=== PATIENT | female | born 1935 | race Hispanic/Latino ===

== ENCOUNTER 2020-03-10 07:11 | Day surgery (SDC) | payer MEDICARE, OTHER ==
[2020-03-10] MEDS ORDERED: SODIUM CHLORIDE 0.9% 1000 ML 1,000 ML IV SCH (08:00)
[2020-03-10 08:10] LABS: Basophils # (Auto) 0.1 K/mm3 (0.0-0.1); Basophils % (Auto) 1.2 % (0.0-1.8); Eosinophils # (Auto) 0.1 K/mm3 (0.0-0.4); Eosinophils % (Auto) 0.7 % (0.0-4.3); Hematocrit 32.4 % (30.3-42.9); Hemoglobin 10.5 gm/dl (10.1-14.3); Lymphocytes # (Auto) 1.7 K/mm3 (1.2-5.4); Lymphocytes % (Auto) 23.4 % (13.4-35.0); Mean Corpuscular HGB Conc 32 % (30-34); Mean Corpuscular Volume 82 fl (79-97); Monocytes # (Auto) 0.6 K/mm3 (0.0-0.8); Platelet Count 321 K/mm3 (140-440); Red Blood Count 3.95 M/mm3 (3.65-5.03); Red Cell Distribution Width 16.5 % (13.2-15.2)
[2020-03-10 08:20] LABS: INR 0.98 (0.87-1.13)
[2020-03-10 08:26] LABS: Blood Urea Nitrogen 10 mg/dL (7-17); Calcium 9.5 mg/dL (8.4-10.2); Hemolysis Index 27
[2020-03-10 08:36] LABS: BUN/Creatinine Ratio 20
--- NOTE | 2020-03-10 08:40 | Anesthesia Day of Surgery ---
Anesthesia Day of Surgery - Day of Surgery Patient Examined: Yes Patient H&P Reviewed: Yes Patient is NPO: Yes
--- NOTE | 2020-03-10 08:42 | Anesthesia Consultation ---
Anesthesia Consult and Med Hx Date of service: 03/10/20 - Airway Anesthetic Teeth Evaluation: Good ROM Head & Neck: Adequate Mental/Hyoid Distance: Adequate Mallampati Class: Class II Intubation Access Assessment: Probably Good - Pre-Operative Health Status ASA Pre-Surgery Classification: ASA3 Proposed Anesthetic Plan: General (MAC; GA if needed), MAC - Pulmonary Hx Smoking: No Hx Respiratory Symptoms: No (Knee pain limits activities) SOB: Yes (ROSARIO) Hx Sleep Apnea: No - Cardiovascular System Hx Hypertension: Yes Hx Coronary Artery Disease: No (Recent ECHO/NST reviewed) Hx Cardia Arrhythmia: Yes (AFIB) 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
[2020-03-10] MEDS ORDERED: fentaNYL 100 MCG/2 ML INJ ONE (09:25)
[2020-03-10] MEDS ORDERED: LIDOCAINE MPF (2%) 20 MG/1 ML VIAL 5 ML ONE (09:25)
[2020-03-10] MEDS ORDERED: propofoL 200 MG/20 ML VIAL IV ONE ×2 (09:26)
[2020-03-10] MEDS ORDERED: ePHEDrine SULFATE 50 MG/1 ML INJ ONE (09:27)
--- NOTE | 2020-03-10 10:03 | Cardiac Catherization Report ---
ELECTRICAL CARDIOVERSION INDICATION FOR PROCEDURE: The patient is a very pleasant 84-year-old female with atrial fibrillation, on systemic anticoagulation in the form of Eliquis uninterrupted for 2 months, here for elective cardioversion. Risks and benefits, alternatives were discussed. PROCEDURE IN DETAIL: The patient was brought to the Cardiology suite in a postabsorptive state. Anesthesia at bedside. Pads were placed anterior and posterior. Once adequate anesthesia was achieved, 200 biphasic joules were delivered and the patient reverted to sinus rhythm. No immediate complications identified. The patient tolerated the procedure well. Anesthesia to recover the patient. CONCLUSIONS: Successful elective cardioversion of atrial fibrillation with resumption of sinus rhythm. No immediate complications identified. We will discuss with her who is also my patient, Mr. Hemal Rivero. The patient brought to be recovered for a couple of hours and will be discharged home later today. [facility]# [id number] ROSE/RAMAKRISHNA
[2020-03-10 10:36] VITALS: BP 127/59
--- NOTE | 2020-03-10 10:42 | Post Anesthesia Evaluation ---
- Post Anesthesia Evaluation Patient Participated: Yes Airway Patent: Yes Stable Respiratory Function: Yes Nausea/Vomiting: No Temp > 96.8F: Yes Pain Manageable: Yes Adequeate Hydration: Yes Anesthesia Complications: No Block Receding Appropriately: Not Applicable Patient on Ventilator: No
== END 2020-03-10 12:15 | disposition home or self-care (01) ==
LOC: OR 07:11 → CATHLABREC 12:15
PROVIDERS: ATTEND Internal Medicine
DX: I48.91 Unspecified atrial fibrillation (principal); I42.9 Cardiomyopathy, unspecified; E78.00 Pure hypercholesterolemia, unspecified; I10 Essential (primary) hypertension; E66.9 Obesity, unspecified; M19.90 Unspecified osteoarthritis, unspecified site; E11.9 Type 2 diabetes mellitus without complications; E03.9 Hypothyroidism, unspecified; Z98.890 Other specified postprocedural states; Z90.49 Acquired absence of other specified parts of digestive tract; Z90.710 Acquired absence of both cervix and uterus; Z96.651 Presence of right artificial knee joint; Z68.32 Body mass index [BMI] 32.0-32.9, adult
CPT/HCPCS: 36415; 80048; 85025; 85610; 85730; 92960; 93005; J2704; J7030; J3010